=== PATIENT | female | born 1980 | race Asian ===

== ENCOUNTER → 2020-12-28 | Outpatient (CLI) | payer OTHER ==
[~2020-12-28] MED LIST: MIRALAX17 GM PO; NAPROSYN500 MG PO; NORCO 5-325 TA1 EACH PO; NORFLEX 100 MG100 MG PO; PREDNISONE 50 M50 MG PO
== END ==
LOC: MAMO 14:30
DX: N64.4 Mastodynia (principal)
CPT/HCPCS: 76641-LT; 76641-RT; 77066; G0279